=== PATIENT | male | born 1990 | race Caucasian/White ===

== ENCOUNTER 2021-12-22 12:47 | Emergency (ER) | payer OTHER ==
[2021-12-22 14:05] VITALS: BP 117/81; PULSE 80; TEMP 98; BMI 26.6
== END 2021-12-22 14:14 | disposition home or self-care (01) ==
LOC: FER 12:47
DX: S16.1XXA Strain of muscle, fascia and tendon at neck level, initial encounter (principal); T07.XXXA Unspecified multiple injuries, initial encounter; Y04.8XXA Assault by other bodily force, initial encounter; Y92.9 Unspecified place or not applicable
CPT/HCPCS: 72050-TC-FY; 73140-TC-LT-FY; 99284-25

== ENCOUNTER 2022-02-05 11:45 | Emergency (ER) | payer OTHER ==
[2022-02-05 11:59] VITALS: BP 120/79; PULSE 66; TEMP 98.8; BMI 27.3
== END 2022-02-05 12:32 | disposition home or self-care (01) ==
LOC: FER 11:45
DX: S60.812A Abrasion of left wrist, initial encounter (principal)
CPT/HCPCS: 99283-25

== ENCOUNTER 2022-04-01 13:19 | Emergency (ER) | payer OTHER ==
[2022-04-01] MEDS ORDERED: DIPHTH,PERTUSS(ACELL),TET 0.5 ML DISP.SYRIN IM ONE (13:24)
[2022-04-01 13:32] VITALS: BP 117/63; PULSE 82; RESP 16; TEMP 98.3; BMI 28.6
== END 2022-04-01 13:40 | disposition home or self-care (01) ==
LOC: FER 13:19
PROC: 3E0234Z Introduction of Serum, Toxoid and Vaccine into Muscle, Percutaneous Approach (ICD-10-PCS; principal; 2022-04-01)
DX: S90.511A Abrasion, right ankle, initial encounter (principal); S90.512A Abrasion, left ankle, initial encounter; S00.91XA Abrasion of unspecified part of head, initial encounter; Y35.811A Legal intervention involving manhandling, law enforcement official injured, initial encounter
CPT/HCPCS: 90471; 99284-25

== ENCOUNTER 2022-04-02 11:30 | Emergency (ER) | payer OTHER ==
[2022-04-02 12:36] VITALS: BP 114/70; PULSE 73; RESP 16; TEMP 98.9; BMI 29.0
== END 2022-04-02 12:26 | disposition home or self-care (01) ==
LOC: FER 11:30
DX: Z77.21 Contact with and (suspected) exposure to potentially hazardous body fluids (principal)
CPT/HCPCS: 99281-25

== ENCOUNTER 2022-06-27 10:33 | Emergency (ER) | payer OTHER ==
[2022-06-27 10:41] VITALS: BP 127/87; PULSE 81; RESP 20; TEMP 98.2; BMI 29.7
== END 2022-06-27 11:00 | disposition home or self-care (01) ==
LOC: FER 10:33
DX: K40.90 Unilateral inguinal hernia, without obstruction or gangrene, not specified as recurrent (principal)
CPT/HCPCS: 99281-25

== ENCOUNTER 2022-08-03 04:04 | Day surgery (SDC) | payer OTHER ==
[2022-07-26 16:45] VITALS: BMI 31.0
[2022-08-03] MEDS ORDERED: BUPIVACAINE HCL/PF 0.5% (5MG/ML) 10 ML VIAL ONE ×2 (07:13→07:53)
[2022-08-03] MEDS ORDERED: LIDOCAINE HCL 1%, 10 MG/ML (20ML VIAL) ONE (07:13)
[2022-08-03] MEDS ORDERED: MIDAZOLAM HCL 2 MG/2 ML SINGLE DOSE VIAL ONE ×2 (07:24→08:02)
[2022-08-03] MEDS ORDERED: DEXAMETHASONE SOD PHOSPHATE 4 MG/1 ML VIAL ONE (07:24)
[2022-08-03] MEDS ORDERED: ONDANSETRON 4 MG/2 ML VIAL ONE (07:24)
[2022-08-03] MEDS ORDERED: FENTANYL CITRATE/PF 50 MCG/ML VIAL ONE ×3 (07:24→10:58)
[2022-08-03] MEDS ORDERED: PROPOFOL 20 ML ONE ×2 (07:24→09:04)
[2022-08-03] MEDS ORDERED: LIDOCAINE HCL/PF 2% SDV 5ML VIAL ONE (07:24)
[2022-08-03] MEDS ORDERED: ceFAZolin SODIUM 1 GM VIAL IVPB ONE (08:12)
[2022-08-03] MEDS ORDERED: ceFAZolin SODIUM 1 GM VIAL ONE (08:12)
[2022-08-03] MEDS ORDERED: ACETAMINOPHEN 1000 MG/100 ML BAG IVPB ONE ×2 (08:26→15:00)
[2022-08-03] MEDS ORDERED: oxyCODONE HCL 5 MG TABLET PO PRN (08:26)
[2022-08-03] MEDS ORDERED: ONDANSETRON 4 MG/2 ML VIAL IVPUSH PRN (08:26)
[2022-08-03] MEDS ORDERED: LACTATED RINGERS SOLUTION 1,000 ML IV SCH (08:30)
[2022-08-03] MEDS ORDERED: BUPIVACAINE HCL/PF 0.5% (5MG/ML) 10 ML VIAL NR ONE ×2 (09:16)
[2022-08-03] MEDS ORDERED: LIDOCAINE HCL 1%, 10 MG/ML (20ML VIAL) NR ONE ×2 (09:16)
[2022-08-03] MEDS ORDERED: ACETAMINOPHEN INJECTION 100 ML IVPB ONE (09:57)
[2022-08-03] MEDS ORDERED: KETOROLAC TROMETHAMINE 15 MG/ML VIAL IM PRN (10:15)
[2022-08-03] MEDS ORDERED: oxyCODONE HCL 5 MG TABLET ONE ×2 (11:43→13:11)
[2022-08-03] MEDS ORDERED: oxyCODONE HCL 5 MG TABLET PO ONE (13:10)
[2022-08-03 13:58] VITALS: BP 98/58
[2022-08-03 14:03] VITALS: PULSE 68; RESP 18; TEMP 97
== END 2022-08-03 14:28 | disposition home or self-care (01) ==
LOC: JASU-SURG 04:04
PROVIDERS: ATTEND Surgery
PROC: 0YU50JZ Supplement Right Inguinal Region with Synthetic Substitute, Open Approach (ICD-10-PCS; principal; 2022-08-03 08:00)
DX: K40.90 Unilateral inguinal hernia, without obstruction or gangrene, not specified as recurrent (principal)
CPT/HCPCS: 88302-TC; 94760; C1781

== ENCOUNTER 2022-11-13 16:09 | Emergency (ER) | payer OTHER ==
[2022-11-13 16:17] VITALS: BP 122/74; PULSE 58; RESP 16; TEMP 98.7; BMI 32.1
== END 2022-11-13 17:22 | disposition home or self-care (01) ==
LOC: FER 16:09
DX: S43.401A Unspecified sprain of right shoulder joint, initial encounter (principal); Y04.0XXA Assault by unarmed brawl or fight, initial encounter; Y99.0 Civilian activity done for income or pay
CPT/HCPCS: 99282-25

== ENCOUNTER 2022-11-25 21:34 | Emergency (ER) | payer OTHER ==
[2022-11-25 21:55] VITALS: BP 139/78; PULSE 114; RESP 18; TEMP 98.8; BMI 32.1
[2022-11-25] MEDS ORDERED: IBUPROFEN 400 MG TABLET (FP) PO ONE ×2 (21:55→21:56)
== END 2022-11-25 22:00 | disposition home or self-care (01) ==
LOC: FER 21:34
DX: S60.512A Abrasion of left hand, initial encounter (principal); S76.311A Strain of muscle, fascia and tendon of the posterior muscle group at thigh level, right thigh, initial encounter; W19.XXXA Unspecified fall, initial encounter
CPT/HCPCS: 99283-25

== ENCOUNTER 2023-10-27 00:29 | Emergency (ER) | payer OTHER ==
[2023-10-27 00:43] VITALS: BP 139/87; PULSE 104; RESP 18; TEMP 98.6; BMI 27.6
[2023-10-27] MEDS ORDERED: CLINDAMYCIN HCL 150 MG CAPSULE (FP) ONE (01:05)
[2023-10-27] MEDS: CLINDAMYCIN HCL 150 MG CAPSULE (FP) PO ONE (01:08)
== END 2023-10-27 01:18 | disposition home or self-care (01) ==
LOC: FER 00:29
DX: M79.641 Pain in right hand (principal); L03.113 Cellulitis of right upper limb
CPT/HCPCS: 87040; 99283-25

== ENCOUNTER 2023-11-25 23:23 | Emergency (ER) | payer OTHER ==
[2023-11-25 23:36] VITALS: BP 120/91; PULSE 116; RESP 18; TEMP 98.8; BMI 27.6
[2023-11-26] MEDS ORDERED: IBUPROFEN 600 MG TABLET (FP) PO ONE (00:01)
[2023-11-26] MEDS: IBUPROFEN 600 MG TABLET (FP) PO ONE (00:08)
== END 2023-11-26 00:39 | disposition home or self-care (01) ==
LOC: FER 23:23
DX: S06.0X0A Concussion without loss of consciousness, initial encounter (principal); S20.221A Contusion of right back wall of thorax, initial encounter; S40.022A Contusion of left upper arm, initial encounter; V89.2XXA Person injured in unspecified motor-vehicle accident, traffic, initial encounter; Y92.410 Unspecified street and highway as the place of occurrence of the external cause
CPT/HCPCS: 99283-25

== ENCOUNTER 2025-02-19 21:18 | Emergency (ER) | payer OTHER ==
[2025-02-19 21:27] VITALS: BP 139/78; PULSE 113; RESP 18; TEMP 98.2; BMI 29.7
[2025-02-19] MEDS: ACETAMINOPHEN 500 MG TABLET (FP) PO ONE (21:54)
[2025-02-19] MEDS ORDERED: ACETAMINOPHEN 500 MG TABLET (FP) ONE (21:54)
== END 2025-02-19 22:08 | disposition home or self-care (01) ==
LOC: FER 21:18
DX: S80.211A Abrasion, right knee, initial encounter (principal); Y35.811A Legal intervention involving manhandling, law enforcement official injured, initial encounter
CPT/HCPCS: 99283-25